=== PATIENT | male | born 1980 | race Caucasian/White ===

== ENCOUNTER 2016-04-27 19:02 | Emergency (ER) | payer SELFPAY ==
[2016-04-27 19:09] VITALS: RESP 24; TEMP 98.7
[2016-04-27] MEDS ORDERED: Sodium Chloride 0.9% 1,000 ML PRIMARY IV ONE (19:10)
[2016-04-27] MEDS ORDERED: NORMAL SALINE 10 ML SYRINGE FLUSH IVP PRN (19:10)
[2016-04-27] MEDS ORDERED: LORazepam 2 MG/1 ML VIAL IVP ONE ×2 (19:10→20:57)
[2016-04-27] MEDS ORDERED: Sodium Chloride 0.9% 1,000 ML, Magnesium Sulfate 2gm (Premix) 50 ML with Multivitamin I... IV ONE ×5 (19:12)
--- NOTE | 2016-04-27 19:21 | EKG ---
[address] [address] Measurements Intervals [place] Rate: 95 P: 29 ME: 124 QRS: 66 QRSD: 101 T: 56 QT: 361 QTc: 413 Interpretive Statements SINUS RHYTHM INCOMPLETE RIGHT BUNDLE BRANCH BLOCK [90+ ms QRS DURATION, TERMINAL R IN V1/V2, 40+ ms S IN I/aVL/V4/V5/V6] No previous ECG available for comparison Electronically Signed On 04-29-16 08:09:19 [facility] by Blayne Matias MD [email or web address]
[2016-04-27 19:36] LABS: BASOPHILS # (AUTO) 0.06 10*3/UL; BASOPHILS % (AUTO) 0.8 % (0-1); EOSINOPHILS % (AUTO) 1.6 % (0-8); HEMATOCRIT 39.3 % (42.0-52.0); HEMOGLOBIN 14.6 g/dL (14.0-18.0); IMM GRAN % (AUTO) 0.3 % (0-5); IMM GRAN# (AUTO) 0.02 10*3/UL; LYMPHOCYTES # (AUTO) 1.53 10*3/uL; LYMPHOCYTES % (AUTO) 21.6 % (10-50); MEAN CORPUSCULAR HEMOGLOBIN 31.3 PG (27-31); MEAN CORPUSCULAR HGB CONC 37.2 g/dL (33-37); MEAN PLATELET VOLUME 10.2 FL (7.4-12.2); MONOCYTES # (AUTO) 0.69 10*3/UL (0.3-0.8); MONOCYTES % (AUTO) 9.7 % (5-15); NEUTROPHILS # (AUTO) 4.67 10*3/UL; RED BLOOD COUNT 4.66 10^6/uL (4.70-6.10); WHITE BLOOD COUNT 7.08 10^3/uL (4.8-10.8)
[2016-04-27 19:40] LABS: PLATELET MORPHOLOGY COMMENT NORMAL MORPHOLOGY (NORM)
[2016-04-27 19:53] LABS: ASPARTATE AMINO TRANSFERASE 174 IU/L (21-57); BILIRUBIN,TOTAL 2.1 mg/dL (0.3-1.2); BLOOD UREA NITROGEN 13 mg/dL (7-22); BUN/CREATININE RATIO 14.44 (6-20); CALCIUM 9.9 mg/dL (8.7-10.7); CHLORIDE 104 meq/L (98-112); CREATININE 0.9 mg/dL (0.70-1.50); EST GLOMERULAR FILTRATION > 60 (>60 ml/min/1.73m(2)); GLUCOSE 145 mg/dL (78-110); MAGNESIUM 1.8 mg/dL (1.6-2.4); POTASSIUM 3.8 meq/L (3.8-5.2); SODIUM 139 meq/L (135-145); TOTAL PROTEIN 8.3 g/dL (6.1-8.0)
[2016-04-27 19:58] LABS: SERUM ALCOHOL < 10 mg/dL (0-10)
[2016-04-27 21:11] LABS: HIV ANTIBODY NEGATIVE (N); HIV-1 P24 ANTIGEN NEGATIVE (N)
[2016-04-27 21:27] LABS: BILIRUBIN,URINE NEGATIVE (NEG); CLARITY,URINE CLEAR (CLEAR); GLUCOSE, URINE (UA) NEGATIVE (NEG); LEUKOCYTE ESTERASE ,URINE NEGATIVE (NEG); NITRATE,URINE NEGATIVE (NEG); OCCULT BLOOD,URINE NEGATIVE (NEG); PH,URINE 7.5 (5.0-8.5); PROTEIN,URINE NEGATIVE (NEG); UROBILINOGEN,URINE 0.2 EU/dL (0.2)
[2016-04-27 21:36] LABS: URINE SAMPLE TYPE CLEAN CATCH URINE; URINE SPECIFIC GRAVITY - MAN 1.015
[2016-04-27 21:38] LABS: FREE T4 (FREE THYROXINE) 1.32 ng/dL (0.93-1.71)
[2016-04-27 21:40] LABS: CANNABINOID SCREEN,URINE POSITIVE (NEG); COCAINE SCREEN NEGATIVE (NEG); METHAMPHETAMINES SCREEN,URINE POSITIVE (NEG)
[2016-04-27] MEDS ORDERED: LORazepam 1 MG TABLET PO SCH (22:00)
--- NOTE | 2016-04-27 22:16 | PDOC ---
General Adult HPI - General Chief Complaint: Drug / Alcohol Use &/or Abuse Stated Complaint: Detoxing Date Seen by Provider: 04/27/16 Time Seen by Provider: 19:00 Source: POSITIVE: Patient, Police Exam Limitations: POSITIVE: No limitations Nurse's Notes Reviewed & Considered: Yes - History of Present Illness Initial Comment: The patient is a 36-year-old male. Patient is brought to the emergency room under police custody; he was arrested this morning. He states he has a history long-standing of prescription opiate abuse and also IV heroin abuse. He states he last injected heroin intravenously a day or so ago. He states he has a 3 year history of opiate abuse and a six-month history of IV heroin abuse. He presents to the emergency room complaining of opiate withdrawal. He states that he is anxious and tremulous and not able to sleep. No fevers or chills. Some myalgia. He states he thinks he might have some blood in his stool. No vomiting. He states he has been told in the past that he has elevated liver functions. Have you received a tetanus shot in the past 10 years?: Unknown Body Location Affected: REPORTS: Other (As above) Timing: REPORTS: Gradual, Getting Worse Duration: <24 hours (Since this morning; onset shortly after being arrested) Severity: Moderate Quality: REPORTS: Other (Patient denies any pain. Complains of not being able to relax, anxiety," opiate withdrawal".) Context: REPORTS: Other (Deprived of opiates since yesterday) Modifying Factors: improves with: Nothing Similar Symptoms Previously: Yes Recent Care Received: REPORTS: Denies Any Prior Injuries Related to Current Complaint?: No - Patient Home Medications Home Medications: Home Medications Diazepam [Valium] 2 mg PO DAILY 04/27/16 - Patient Allergies Allergies/Adverse Reactions: Allergies Allergy/AdvReac Type Severity Reaction Status Date / Time No Known Allergies Allergy Unverified 04/27/16 19:09 Past Medical History - heen HEENT History: Denies History Cardiovascular History: Denies History Respiratory History: Denies History Gastrointestinal History: Other (please comment) Additional Gastrointestinal History: BLEEDING IN THE STOMACH Genitourinary History: Denies History Endocrine History: Denies History Musculoskeletal History: Denies History Neurological History: Denies History Blood Disorders: Denies History Psychiatric History: Denies History Male Reproductive History: Denies History Cancer History: Denies History In Past Year Been Physically Harmed or Verbally Threatened: No History of MDRO: No Tobacco Use: Former Smoker Alcohol Use: None Substance Use Type: Heroin Previous Surgical History: No Significant Family History: No pertinent family hx Past Medical History Reviewed: Reviewed - No Changes ROS - Limitations ROS Limitations: No Limitations Constitution: REPORTS: Denies Symptoms Cardiovascular: REPORTS: Heart Racing Respiratory: REPORTS: Denies Resp Symptoms Neurological: REPORTS: Denies Neuro Symptoms Gastrointestinal: REPORTS: Bloody Stools Endocrine: REPORTS: Denies Symptoms Musculoskeletal: REPORTS: Denies MS Symptoms Genitourinary: REPORTS: Denies Symptoms Eyes: REPORTS: Denies Symptoms ENT: REPORTS: Denies Symptoms Skin: REPORTS: Denies Skin Symptoms Lympathic: REPORTS: Denies Lympathic Symptoms Immunologic: POSITIVE: Denies Symptoms Psychiatric: POSITIVE: Anxiety General Adult Exam - General Appearance General Appearance: POSITIVE: Alert, Cooperative, No Evidence of Trauma, Anxious , Moderate Distress - HEENT HEENT: POSITIVE: Head Inspection Nml, Eyes Inspection Nml, Ears Inspection Nml, Nose Inspection Nml, Oral/Dental Inspect. Nml, Pharynx Inspect. Nml, PERRL, EOMI - Pupils Pupil Size: 4 mm: Bilateral (PERRLA) - Neck Neck: POSITIVE: Normal Inspection, Thyroid Normal - Respiratory Respiratory: POSITIVE: No Respiratory Distress, Breath Sounds Normal, Chest Non- Tender - Cardiovascular Cardiovascular: POSITIVE: Regular Rate & Rhythm, No Murmur, No Gallop, PMI Normal Peripheral Pulses: Radial (R): 2+, Radial (L): 2+ - Abdomen Abdomen: Soft: (All Quadrants), Normal Bowel Sounds: (All Quadrants), Denies Tenderness: (All Quadrants), No Splenomegaly: (All Quadrants), No Hepatomegaly: (All Quadrants), No Guarding: (All Quadrants), No Rebound: (All Quadrants), No Palpable Pulse: (All Quadrants), No Palpabale Mass: (All Quadrants), No Distention: (All Quadrants), No Rigidity: (All Quadrants) - Rectal Rectal: POSITIVE: Non Tender, Normal Rectal Tone, Heme Negative Stool - Back Back: POSITIVE: Normal Inspection - Skin Skin: POSITIVE: Normal Color, Warm, Dry, No Rash - Extremities Extremity: Non-Tender: (All Extremities), Normal ROM: (All Extremities), Normal Inspection: (All Extremities) Additional Extremities Details: Track rojas volar surface of both arms - Neurological / Psychological Neurological: POSITIVE: Oriented X3, employee relations director Normal As Tested, Motor Normal, Sensation Normal, 5, 6 General Adult Progress - Results Reviewed by me Lab Results Reviewed: Yes Lab Results:: Laboratory Results 04/27/16 04/27/16 04/27/16 Range/Units 19:32 20:48 21:00 WBC 7.08 (4.8-10.8) 10^3/uL RBC 4.66 L (4.70-6.10) 10^6/uL Hgb 14.6 (14.0-18.0) g/dL Hct 39.3 L (42.0-52.0) % MCV 84.3 (80-90) FL MCH 31.3 H (27-31) PG MCHC 37.2 H (33-37) g/dL RDW Std Deviation 42.2 (39-50) fL RDW Coeff of Matheus 14.0 (11.5-14.5) % Plt Count 241 (140-350) 10*3/uL MPV 10.2 (7.4-12.2) FL Immature Gran % (Auto) 0.3 (0-5) % Neut % (Auto) 66.0 (50-80) % Lymph % (Auto) 21.6 (10-50) % [place] % (Auto) 9.7 (5-15) % Eos % (Auto) 1.6 (0-8) % Baso % (Auto) 0.8 (0-1) % Immature Gran # (Auto) 0.02 10*3/UL Neut # (Auto) 4.67 10*3/UL Lymph # (Auto) 1.53 10*3/uL [place] # (Auto) 0.69 (0.3-0.8) 10*3/UL Eos # (Auto) 0.11 10*3/UL Baso # (Auto) 0.06 10*3/UL WBC Morphology Comment Normal morphology (NORM) Plt Morphology Comment Normal morphology (NORM) RBC Morph Comment Normal morphology (NORM) Sodium 139 (135-145) meq/L Potassium 3.8 (3.8-5.2) meq/L Chloride 104 (98-112) meq/L Carbon Dioxide 22 L (23-33) meq/L Anion Gap 13 (5-20) BUN 13 (7-22) mg/dL Creatinine 0.9 (0.70-1.50) mg/dL Estimated GFR > 60 (>60 ml/min/1.73m(2)) BUN/Creatinine Ratio 14.44 (6-20) Glucose 145 H (78-110) mg/dL Calculated Osmolality 290.0 (267-292) mOsm/kg Calcium 9.9 (8.7-10.7) mg/dL Magnesium 1.8 (1.6-2.4) mg/dL Total Bilirubin 2.1 H (0.3-1.2) mg/dL AST 174 H (21-57) IU/L ALT 246 H (21-72) IU/L Alkaline Phosphatase 142 H (38-126) IU/L Total Protein 8.3 H (6.1-8.0) g/dL Albumin 4.5 (3.5-4.8) g/dL Globulin 3.8 (2.50-4.10) g/dL Albumin/Globulin Ratio 1.10 L (1.3-2.0) mg/g TSH 0.074 L (0.2700-4.2000) uIU/mL Free T4 1.32 (0.93-1.71) ng/dL Ur Collection Type Clean catch urine Urine Color Yellow Urine Clarity Clear (CLEAR) Urine pH 7.5 (5.0-8.5) Ur Specific [place] 1.015 (1.005-1.030) U Specif Grav (Refrac) 1.015 Urine Protein Negative (NEG) mg/dl Urine Glucose (UA) Negative (NEG) mg/dL Urine Ketones Trace (NEG) Urine Occult Blood Negative (NEG) Urine Nitrate Negative (NEG) Urine Bilirubin Negative (NEG) Urine Urobilinogen 0.2 (0.2) EU/dL Ur Leukocyte Esterase Negative (NEG) Ur Culture Indicated? Culture not set Salicylates < 1.0 (0-20) mg/dl Urine Opiates Screen Positive H (NEG) Ur Buprenorphine Negative (NEG) Ur Oxycodone Screen Negative (NEG) Urine Methadone Screen Negative (NEG) Ur Propoxyphene Screen Negative (NEG) Acetaminophen < 10.0 (0-30) ug/mL Barbiturate Screen Negative (NEG) U Tricyclic Antidepress Negative (NEG) Phencyclidine Screen Negative (NEG) Amphetamines Screen Positive H (NEG) U Methamphetamines Scrn Positive H (NEG) Benzodiazepines Screen Positive H (NEG) Cocaine Screen Negative (NEG) U Marijuana (THC) Screen Positive H (NEG) Serum Alcohol < 10 (0-10) mg/dL HIV 1&2 Antibody Rapid Negative (N) HIV P24 Antigen Negative (N) EKG Interpreted/Reviewed By Me:: Yes (right bundle-branch block) EKG Interpretation:: POSITIVE: Normal Sinus Rhythm, Normal Rate, Normal Intervals, Normal Mcmillan, Normal ST/T. NEGATIVE: Normal QRS (Incomplete right bundle-branch block) - Patient's Progress Pain Medication Addressed: POSITIVE: Yes (Patient given a total of 4 mg of Ativan in the emergency room IV and a banana bag of a liter of normal saline with 2 g magnesium sulfate, 100 mg of thiamine and a milligram of folate.) School/Work Release Addressed: POSITIVE: Yes (Medically cleared to return to the senior living) Re-Examine Time: 21:50 Re-Examine Comment: Patient given a total 4 mg of Ativan IV in the emergency room as well as a banana bag. Liver functions are elevated and hepatitis panel is pending. Patient is medically stable and is discharged back to the senior living in the custody of police officers. Medical personnel at the senior living advised of hepatitis panel, which should be back Friday or Friday and, if positive, further evaluation and treatment of possible hepatitis can be undertaken at that time. Status: POSITIVE: Improved, Re-Examined Antibiotics Given: No - Consult Counseled: POSITIVE: Patient, RE: Lab Results, RE: DX, RE: Need for F/U Patient Care Time - Estimated PCT Patient Care Time (In Minutes): 60 Vital Signs - Recent Vital Signs Vital Signs: Vital Signs (Last 8 hours) Temp Pulse Resp BP Pulse Ox 04/27/16 19:05 98.7 F 104 H 24 178/102 95 04/27/16 19:02 98.7 F 104 H 24 178/102 95 - VS Reviewed Vital Signs Reviewed: Yes Discharge Clinical Impression: Narcotic abuse, Narcotic withdrawal, Elevated liver enzymes, Polysubstance abuse Discharge Disposition: Discharged to Custody of Law Enforcement Condition: Good Patient Instructions Given at Discharge: Narcotic Abuse (ED), Opioid Withdrawal (ED) Additional Instructions: Avoid the use of any illegal drugs or prescription opiates. Your liver functions are somewhat elevated; since you are an IV drug abuser you are at risk for hepatitis. I have drawn a hepatitis panel and the results should be back to 0 Friday. I have asked the medical staff at the senior living to receive the results of this test and, if positive, make appropriate referral. Your HIV test is negative. Ativan one every 6 hours as necessary for opiate withdrawal. Return here anytime if condition worsens. Follow Up With: NONE,NONE [Primary Care Provider] - (Instructions as above. Return as necessary.) Date Decision to Transfer to Another Facility: 04/27/16 Time Decision to Transfer to Another Facility: 21:50
[2016-04-30 10:14] LABS: HEP B CORE IGM ANTIBODY Negative (Negative); HEPATITIS B SURFACE AG Negative (Negative)
[2016-04-30 13:50] LABS: HEPATITIS C ANTIBODY SCREEN Reactive (Negative)
== END 2016-04-27 22:03 ==
LOC: ER 19:02
DX: F11.23 Opioid dependence with withdrawal (principal); F11.10 Opioid abuse, uncomplicated; F19.10 Other psychoactive substance abuse, uncomplicated; R79.89 Other specified abnormal findings of blood chemistry
CPT/HCPCS: 80053; 80305; 80320; 80329; 81003; 83735; 84439; 84443; 85025; 86703; 86705; 86709; 86803; 87340; 87522; 90791; 93005; 93010; 96361; 96365; 96366; 96375; 96376; 99283; J2060; J3411; J3475; J7030

== ENCOUNTER 2016-04-28 20:34 | Observation (INO) | payer OTHER ==
[2016-04-28] MEDS ORDERED: NORMAL SALINE 10 ML SYRINGE FLUSH IVP PRN ×2 (20:36→22:52)
[2016-04-28] MEDS ORDERED: Sodium Chloride 0.9% 1,000 ML PRIMARY IV ONE (20:36)
[2016-04-28] MEDS ORDERED: LORazepam 2 MG/1 ML VIAL IVP ONE (20:36)
[2016-04-28] MEDS ORDERED: Prochlorperazine Edisylate Inj 10mg/2ml vial IVP ONE (20:37)
[2016-04-28 20:46] LABS: BASOPHILS # (AUTO) 0.03 10*3/UL; BASOPHILS % (AUTO) 0.2 % (0-1); EOSINOPHILS % (AUTO) 0.1 % (0-8); HEMATOCRIT 42.9 % (42.0-52.0); IMM GRAN % (AUTO) 0.2 % (0-5); IMM GRAN# (AUTO) 0.02 10*3/UL; LYMPHOCYTES # (AUTO) 2.72 10*3/uL; LYMPHOCYTES % (AUTO) 21.4 % (10-50); MEAN CORPUSCULAR HEMOGLOBIN 31.3 PG (27-31); MEAN CORPUSCULAR HGB CONC 37.3 g/dL (33-37); MEAN PLATELET VOLUME 10.3 FL (7.4-12.2); MONOCYTES # (AUTO) 1.38 10*3/UL (0.3-0.8); MONOCYTES % (AUTO) 10.9 % (5-15); NEUTROPHILS # (AUTO) 8.53 10*3/UL; NEUTROPHILS % (AUTO) 67.2 % (50-80); PLATELET MORPHOLOGY COMMENT NORMAL MORPHOLOGY (NORM); RDW COEFFICIENT OF VARIATION 14.4 % (11.5-14.5); RED BLOOD COUNT 5.12 10^6/uL (4.70-6.10); WHITE BLOOD COUNT 12.69 10^3/uL (4.8-10.8)
[2016-04-28 20:54] LABS: ASPARTATE AMINO TRANSFERASE 525 IU/L (21-57); BILIRUBIN,TOTAL 2.6 mg/dL (0.3-1.2); BLOOD UREA NITROGEN 14 mg/dL (7-22); BUN/CREATININE RATIO 15.55 (6-20); CALCIUM 10.1 mg/dL (8.7-10.7); CHLORIDE 104 meq/L (98-112); CREATININE 0.9 mg/dL (0.70-1.50); EST GLOMERULAR FILTRATION > 60 (>60 ml/min/1.73m(2)); GLUCOSE 133 mg/dL (78-110); POTASSIUM 4.1 meq/L (3.8-5.2); SODIUM 141 meq/L (135-145); TOTAL PROTEIN 8.7 g/dL (6.1-8.0)
[2016-04-28 20:57] LABS: AMYLASE < 30 U/L (30-110); PROTHROMBIN TIME 12.2 secs (9.7-11.4)
--- NOTE | 2016-04-28 20:57 | EKG ---
[address] [address] Measurements Intervals [place] Rate: 59 P: 58 CT: 118 QRS: 82 QRSD: 103 T: 77 QT: 445 QTc: 444 Interpretive Statements SINUS BRADYCARDIA WITH SINUS ARRHYTHMIA WITH SHORT CT INTERVAL INTERPRETATION BASED ON A DEFAULT AGE OF 40 YEARS Compared to ECG 04/27/2016 19:21:[address] interval now present Sinus rhythm no longer present Incomplete right bundle-branch block no longer present Electronically Signed On 04-29-16 08:11:41 [facility] by Blayne Matias MD [email or web address]
[2016-04-28 21:06] LABS: CREATINE KINASE MB 0.71 NG/DL (0.00-5.00); TROPONIN I < 0.012 ng/mL (< 0.040)
--- NOTE | 2016-04-28 22:28 | DI ---
HISTORY: Generalized abdominal pain with vomiting and elevated LFTs. COMPARISON: None. TECHNIQUE: Helical CT scanning was performed from the lung bases, through the abdomen and pelvis, to the level of lesser trochanters following the administration of IV contrast material. MPR. 370 images . FINDINGS: LUNG BASES/LOWER HEART: The visualized portions of the heart and lung bases are without focal consol idation, pleural effusion or pneumothorax. ABDOMEN/PELVIS: LIVER: Overall homogeneous appearance, noting a sub centimeter hypotenuse lesion in the right anterio r lobe of liver which is too small to adequately characterize. No aggressive features detected. GALLBLADDER: Distended with bile. No calcified gallstones identified. PANCREAS: No adjacent inflammatory change. ADRENAL GLANDS: Maintain their normal shapes and sizes. SPLEEN: Enhances homogeneously. KIDNEYS: Normal location. No hydronephrosis. Mild cortical scarring of the posterior right kidney. GREAT VESSELS: Enhance unremarkably. FREE INTRAPERITONEAL FLUID: No significant volume. VARIABLY DISTENDED BOWEL LOOPS: Few, mildly prominent loops of jejunum without adjacent stranding or evidence of high-grade obstruction. Large bowel is distended with fluid and small bowel with mixed at tenuation material. APPENDIX: Incompletely visualized. No inflammatory change detected in the right lower quadrant, given limitations secondary to limited patient intraperitoneal fat. URINARY BLADDER: Distended with urine, noting mild thickening of the bladder wall. OSSEOUS STRUCTURES: No acute osseous abnormality noted. IMPRESSION: 1. No evidence of high-grade bowel obstruction. Jejunal loops of small bowel are mildly prominent, h owever no adjacent inflammatory changes are noted. The appendix is incompletely evaluated and no rig ht lower quadrant fat stranding is noted, given limitations secondary to lack of intraperitoneal fat. If continued clinical concern, consider CT following oral contrast administration. 2. No obstructive uropathy or evidence of pancreatitis.
[2016-04-28] MEDS ORDERED: ONDANSETRON 4 MG/2 ML VIAL IVP PRN (22:52)
--- NOTE | 2016-04-28 23:06 | PDOC ---
History and Physical - History of Present Illness Date and Time of Service: 04/28/2016 11 PM Chief Complaint: Vomiting, agitation since yesterday History of Present Illness: This is a 36 years old male with no significant past medical history except long -standing history of drug abuse including IV heroin apparently he was arrested yesterday morning and was brought yesterday to the ER because of withdrawal symptoms. Apparently he was anxious and tremulous and was unable to sleep and had some myalgia at that time there was no vomiting. In the ER he was given some fluids and given IV Ativan and was prescribed Ativan as needed to get at the group home and was sent back to the group home. Apparently he continued to vomit and complained from chest pain with radiation to the arm today and because of that was brought to the ER again. This time he was given Ativan and Compazine. Was found to be dehydrated and his LFTs were higher than yesterday and hence the admission. Patient sleepy would wake up at times and responded to some of the questions and then go back to sleep. The patient did say that he use drugs including IV heroin he told me for years, he did admit other drug usage after asking him about the positive urine tox for meth and benzo. He Denied cocaine. Difficult to get history from because of his sleepiness. Past Medical History Medical History: 1. Drug abuse unclear duration. 2. Elevated LFTs on a blood test done yesterday, couldn't tell me whether he had hepatitis before or not Surgical History: There is a scar of previous operation on the left forearm Pertinent Family History: Did not answer the question Past Social History: Patient is from [facility], he smokes, he doesn't drink according to him, uses IV drugs including heroin and apparently marijuana and meth Tobacco Use: Current Every Day Smoker Substance Use Type: Heroin, Marijuana, Opiate Pain Medication, Methamphetamines Alcohol Use: None Medication / Allergies Home Medications: Home Medications Medication Instructions Recorded Confirmed Type Diazepam [Valium] 2 mg PO DAILY 04/27/16 04/28/16 History LORazepam Tab [Ativan Tab] 1 mg PO Q6H PRN 04/28/16 04/28/16 History Allergies/Adverse Reactions: Allergies Allergy/AdvReac Type Severity Reaction Status Date / Time No Known Allergies Allergy Verified 04/28/16 20:38 Review of Systems - Review of Systems ROS Unobtainable: Due to Mental Status Exam - General Additional General Exam Details: Sleepy because of the effect of the medication that he got earlier - Head Head Exam: POSITIVE: Normal Inspection - Eye Eye Exam: POSITIVE: Normal Appearance - ENT ENT Exam: POSITIVE: Normal Exam - Neck Neck Exam: POSITIVE: Normal Inspection - Respiratory Respiratory Exam: POSITIVE: Clear to Auscultation - Bilaterally - Cardiovascular Cardiovascular Exam: POSITIVE: RRR - GI/Abdominal GI/Abdominal Exam: POSITIVE: Normal Bowel Sounds, Non Tender, Non Distended, Soft - Rectal Rectal Exam: POSITIVE: Deferred - External Exam: POSITIVE: Deferred - Extremities Additional Extremities Exam Details: A scar of previous operation on the left forearm, moves all limbs, not cooperative but moving all limbs - Back Back Exam: POSITIVE: Normal Inspection - Neurological Additional Neurological Exam Details: Sleepy, moving all limbs. Would answer some of the questions and then go back to sleep - Integumentary Integumentary Exam: POSITIVE: Dry Results - Labs CBC and BMP: 04/28/16 20:43 04/28/16 20:43 - EKG Data -: EKG Interpreted by Me Rate: Normal EKG Shows Normal: Sinus Rhythm - EKG Data Additional EKG Details: Incomplete right bundle branch block - Imaging Status: Report Reviewed by Me (CT abdomen, no evidence of high-grade bowel obstruction, jejunal loops of small bowel are mildly prominent however no adjacent document 3 changes are noted.) Assessment and Plan - Patient Problems (1) Polysubstance abuse Current Visit: No Status: Acute Comment: Continue fluid hydration, antiemetics and Ativan as needed, will treat symptomatically may consider clonidine after hydration (2) Elevated liver enzymes Current Visit: No Status: Acute Comment: Hepatitis screen was sent will repeat LFT tomorrow
[2016-04-28] MEDS: NORMAL SALINE 10 ML SYRINGE FLUSH IVP PRN (23:23)
[2016-04-28] MEDS: LORazepam 2 MG/1 ML VIAL IVP PRN (23:23)
[2016-04-28] MEDS: Sodium Chloride 0.9% 1,000 ML PRIMARY IV SCH (23:24)
--- NOTE | 2016-04-28 23:42 | PDOC ---
General Adult HPI - General Chief Complaint: Chest Pain Stated Complaint: chest pain Date Seen by Provider: 04/28/16 Time Seen by Provider: 20:30 Source: POSITIVE: Patient, Police Exam Limitations: POSITIVE: Clinical condition Nurse's Notes Reviewed & Considered: Yes - History of Present Illness Initial Comment: The patient is a 36-year-old male who is brought back to the emergency department with complaints of withdrawal. He reports that he previously used large amounts of heroin. In reviewing his emergency room visit from last night he apparently has a history of prescription opiate abuse for several years with heavy heroin use for the past 6 months. He was arrested sometime yesterday and was subsequently evaluated here in the emergency department for medical clearance. He was quite agitated when he was seen in the emergency room last night and received several doses of Ativan and Haldol. He was subsequently allowed to go to assisted. He was given Ativan as needed for withdrawal symptoms. He did test positive for opiates, amphetamines, methamphetamines and marijuana on his tox screen yesterday. His blood work revealed elevated liver enzymes and an acute hepatitis panel had been sent off yesterday. Today he has remained agitated and according to him he has been vomiting. He also is complaining of chest pain which is worsened after vomiting. He also reports having blood in his stool. Have you received a tetanus shot in the past 10 years?: Unknown - Patient Home Medications Home Medications: Home Medications Diazepam [Valium] 2 mg PO DAILY 04/27/16 LORazepam Tab [Ativan Tab] 1 mg PO Q6H PRN 04/28/16 - Patient Allergies Allergies/Adverse Reactions: Allergies Allergy/AdvReac Type Severity Reaction Status Date / Time No Known Allergies Allergy Verified 04/28/16 20:38 Past Medical History - heen HEENT History: Denies History Cardiovascular History: Denies History Respiratory History: Denies History Gastrointestinal History: GI Bleed, Other (please comment) Additional Gastrointestinal History: BLEEDING IN THE STOMACH Genitourinary History: Denies History Endocrine History: Denies History Musculoskeletal History: Denies History Prosthesis or Implant: No Neurological History: Denies History Blood Disorders: Denies History Psychiatric History: Substance Abuse Cancer History: Denies History In Past Year Been Physically Harmed or Verbally Threatened: No History of MDRO: No Tobacco Use: Current Every Day Smoker Alcohol Use: None How much alcohol do you normally drink a day?: pt denies Substance Use Type: Heroin, Marijuana, Opiate Pain Medication, Methamphetamines Previous Surgical History: No Significant Family History: No pertinent family hx Past Medical History Reviewed: Reviewed - No Changes ROS - Limitations ROS Limitations: Uncooperative, Other (please comment) (Patient is agitated and at times uncooperative) Constitution: DENIES: Chills, Fever Cardiovascular: REPORTS: Chest Pain, Heart Racing, Heart Palpitations. DENIES: Edema Respiratory: REPORTS: Denies Resp Symptoms. DENIES: Shortness Of Breath Neurological: DENIES: Headache, Numbness, Weakness Gastrointestinal: REPORTS: Abdominal Pain, Nausea, Vomitting, Diarrhea, Bloody Stools General Adult Exam - General Appearance General Appearance: POSITIVE: Anxious - HEENT HEENT: POSITIVE: Head Inspection Nml, Eyes Inspection Nml, Ears Inspection Nml, Dry Mucous Membranes - Neck Neck: POSITIVE: Normal Inspection. NEGATIVE: Lymphadenopathy - Respiratory Respiratory: POSITIVE: No Respiratory Distress, Breath Sounds Normal - Cardiovascular Cardiovascular: POSITIVE: Regular Rate & Rhythm, No Murmur Peripheral Pulses: Dorsalis-pedis (R): 2+, Dorsalis-pedis (L): 2+ - Abdomen Abdomen: Soft: (All Quadrants), Normal Bowel Sounds: (All Quadrants), No Guarding: (All Quadrants), No Rebound: (All Quadrants), No [place] Mass: (All Quadrants), No Distention: (All Quadrants) - Skin Skin: POSITIVE: Normal Color, Other (Multiple bruises and lesions on his arms consistent with IV drug abuse) - Extremities Extremity: Normal ROM: (All Extremities), Normal Inspection: (All Extremities) - Neurological / Psychological Neurological: POSITIVE: Oriented X3, Motor Normal, Sensation Normal General Adult Progress - Results Reviewed by me Xrays/CTs/US Reviewed by me: Yes Discussed with Radiologist: Yes Radiology Findings: Chest x-ray is unremarkable. CT scan of the abdomen and pelvis reveals no evidence of obstruction, no CT evidence of appendicitis, unremarkable liver and gallbladder, he does have some mild inflammatory changes in the bowel being nonspecific per radiologist. Lab Results Reviewed: Yes Lab Results:: Laboratory Results 04/28/16 Range/Units 20:43 WBC 12.69 H (4.8-10.8) 10^3/uL RBC 5.12 (4.70-6.10) 10^6/uL Hgb 16.0 (14.0-18.0) g/dL Hct 42.9 (42.0-52.0) % MCV 83.8 (80-90) FL MCH 31.3 H (27-31) PG MCHC 37.3 H (33-37) g/dL RDW Std Deviation 43.5 (39-50) fL RDW Coeff of Matheus 14.4 (11.5-14.5) % Plt Count 274 (140-350) 10*3/uL MPV 10.3 (7.4-12.2) FL Immature Gran % (Auto) 0.2 (0-5) % Neut % (Auto) 67.2 (50-80) % Lymph % (Auto) 21.4 (10-50) % [place] % (Auto) 10.9 (5-15) % Eos % (Auto) 0.1 (0-8) % Baso % (Auto) 0.2 (0-1) % Immature Gran # (Auto) 0.02 10*3/UL Neut # (Auto) 8.53 10*3/UL Lymph # (Auto) 2.72 10*3/uL [place] # (Auto) 1.38 H (0.3-0.8) 10*3/UL Eos # (Auto) 0.01 10*3/UL Baso # (Auto) 0.03 10*3/UL WBC Morphology Comment Normal morphology (NORM) Plt Morphology Comment Normal morphology (NORM) RBC Morph Comment Normal morphology (NORM) PT 12.2 H (9.7-11.4) secs INR 1.18 (0.00-5.90) N/A D-Dimer 0.52 (0.00-0.59) mg/L Sodium 141 (135-145) meq/L Potassium 4.1 (3.8-5.2) meq/L Chloride 104 (98-112) meq/L Carbon Dioxide 22 L (23-33) meq/L Anion Gap 15 (5-20) BUN 14 (7-22) mg/dL Creatinine 0.9 (0.70-1.50) mg/dL Estimated GFR > 60 (>60 ml/min/1.73m(2)) BUN/Creatinine Ratio 15.55 (6-20) Glucose 133 H (78-110) mg/dL Calculated Osmolality 294.0 H (267-292) mOsm/kg Calcium 10.1 (8.7-10.7) mg/dL Magnesium 2.0 (1.6-2.4) mg/dL Total Bilirubin 2.6 H (0.3-1.2) mg/dL AST 525 H (21-57) IU/L ALT 652 H (21-72) IU/L Alkaline Phosphatase 138 H (38-126) IU/L CK-MB (CK-2) 0.71 (0.00-5.00) NG/DL Troponin I < 0.012 (< 0.040) ng/mL Total Protein 8.7 H (6.1-8.0) g/dL Albumin 4.8 (3.5-4.8) g/dL Globulin 3.9 (2.50-4.10) g/dL Albumin/Globulin Ratio 1.20 L (1.3-2.0) mg/g Amylase < 30 L (30-110) U/L Lipase 102 (23-300) IU/L EKG Interpreted/Reviewed By Me:: Yes EKG Interpretation:: POSITIVE: Normal Sinus Rhythm, Normal Rate, Normal Intervals, Normal QRS, Normal ST/T - Patient's Progress MDM / ED Course: The patient was agitated and dry heaving on arrival. He received Ativan 2 mg IV and Compazine 5 mg IV. He continued to complain of abdominal pain. Blood work revealed liver enzymes which had increased since yesterday as well as an elevated white count at 12,000. Because of his complaints of abdominal pain and these laboratory findings a CT of the abdomen and pelvis was ordered. The patient appears to be having withdrawal likely primarily from opiates although he did test positive for amphetamines as well. Clinically he does appear to be dehydrated. The patient was requesting narcotic medication to help him "wean off" of the heroin. I told him that I did not feel comfortable giving him any narcotics. The patient does however appear to be dehydrated and his liver enzymes are rising. An acute hepatitis panel has been sent. The patient is at risk for viral hepatitis. Decision was made to admit the patient for further hydration and treatment of his withdrawal symptoms. Dr. Castillo has agreed to admit the patient. - Consult Counseled: POSITIVE: Patient, RE: Lab Results, RE: Radiology Results, RE: DX, RE : Need for F/U Patient Care Time - Estimated PCT Patient Care Time (In Minutes): 35 Vital Signs - Recent Vital Signs Vital Signs: Vital Signs (Last 8 hours) Temp Pulse Pulse Resp BP Pulse Ox 04/28/16 20:36 59 L 04/28/16 20:35 97.6 F 56 L 22 113/73 96 - VS Reviewed Vital Signs Reviewed: Yes Discharge Clinical Impression: Narcotic withdrawal, Polysubstance abuse, Elevated liver enzymes Discharge Disposition: Admit to Observation Condition: Stable
[2016-04-29] MEDS: NORMAL SALINE 10 ML SYRINGE FLUSH IVP PRN (02:06)
[2016-04-29] MEDS: LORazepam 2 MG/1 ML VIAL IVP PRN ×3 (02:06→09:00)
[2016-04-29] MEDS: Sodium Chloride 0.9% 1,000 ML PRIMARY IV SCH ×3 (06:20→18:38)
[2016-04-29 06:30] LABS: ASPARTATE AMINO TRANSFERASE 486 IU/L (21-57); BILIRUBIN,TOTAL 2.4 mg/dL (0.3-1.2); BLOOD UREA NITROGEN 13 mg/dL (7-22); BUN/CREATININE RATIO 16.25 (6-20); CALCIUM 8.9 mg/dL (8.7-10.7); CHLORIDE 106 meq/L (98-112); CREATININE 0.8 mg/dL (0.70-1.50); EST GLOMERULAR FILTRATION > 60 (>60 ml/min/1.73m(2)); GLUCOSE 149 mg/dL (78-110); POTASSIUM 3.6 meq/L (3.8-5.2); SODIUM 138 meq/L (135-145); TOTAL PROTEIN 7.7 g/dL (6.1-8.0)
[2016-04-29 06:35] LABS: BASOPHILS # (AUTO) 0.05 10*3/UL; BASOPHILS % (AUTO) 0.5 % (0-1); EOSINOPHILS % (AUTO) 0.1 % (0-8); HEMOGLOBIN 15.8 g/dL (14.0-18.0); IMM GRAN % (AUTO) 0.2 % (0-5); IMM GRAN# (AUTO) 0.02 10*3/UL; LYMPHOCYTES # (AUTO) 2.32 10*3/uL; LYMPHOCYTES % (AUTO) 21.5 % (10-50); MEAN CORPUSCULAR HGB CONC 36.7 g/dL (33-37); MEAN PLATELET VOLUME 10.7 FL (7.4-12.2); MONOCYTES # (AUTO) 1.26 10*3/UL (0.3-0.8); MONOCYTES % (AUTO) 11.7 % (5-15); NEUTROPHILS # (AUTO) 7.12 10*3/UL; RDW COEFFICIENT OF VARIATION 14.5 % (11.5-14.5); RED BLOOD COUNT 5.09 10^6/uL (4.70-6.10); WHITE BLOOD COUNT 10.78 10^3/uL (4.8-10.8)
[2016-04-29 06:39] LABS: PLATELET MORPHOLOGY COMMENT NORMAL MORPHOLOGY (NORM)
--- NOTE | 2016-04-29 09:02 | DI ---
AP CHEST X-RAY, 04/28/2016 8:36 PM : Clinical History: Chest pain Previous Exam: None at this facility. There is no acute soft tissue or bony abnormality. Heart size is normal. Lungs are clear. Mediastinal structures are normal. There are no pulmonary nodules. Reading: Normal chest x-ray.
[2016-04-29] MEDS ORDERED: POTASSIUM CHLORIDE 20 MEQ TAB PO ONE (09:58)
[2016-04-29] MEDS ORDERED: Diphenoxylate/Atropine 2.5/0.025 mg Tab PO PRN (10:09)
[2016-04-29] MEDS ORDERED: LORazepam 2 MG/1 ML VIAL IVP PRN (10:09)
[2016-04-29] MEDS ORDERED: QUEtiapine Tab 25 MG TAB PO ONE (10:46)
--- NOTE | 2016-04-29 12:44 | PDOC(PROG) ---
Date and Time of Service: 04/29/2016, 1235 Interval History: Wants to be on Dilaudid. States it is the only thing that helps him and his withdrawal states. He is continuing to have diarrhea and is agitated, but overall is better than he was when he was first admitted. Objective : Data - Labs CBC and BMP: 04/29/16 06:04 04/29/16 06:04 Labs - Last 24 Hours: Laboratory Results 04/29/16 Range/Units 06:04 WBC 10.78 (4.8-10.8) 10^3/uL RBC 5.09 (4.70-6.10) 10^6/uL Hgb 15.8 (14.0-18.0) g/dL Hct 43.0 (42.0-52.0) % MCV 84.5 (80-90) FL MCH 31.0 (27-31) PG MCHC 36.7 (33-37) g/dL RDW Std Deviation 43.8 (39-50) fL RDW Coeff of Matheus 14.5 (11.5-14.5) % Plt Count 245 (140-350) 10*3/uL MPV 10.7 (7.4-12.2) FL Immature Gran % (Auto) 0.2 (0-5) % Neut % (Auto) 66.0 (50-80) % Lymph % (Auto) 21.5 (10-50) % [place] % (Auto) 11.7 (5-15) % Eos % (Auto) 0.1 (0-8) % Baso % (Auto) 0.5 (0-1) % Immature Gran # (Auto) 0.02 10*3/UL Neut # (Auto) 7.12 10*3/UL Lymph # (Auto) 2.32 10*3/uL [place] # (Auto) 1.26 H (0.3-0.8) 10*3/UL Eos # (Auto) 0.01 10*3/UL Baso # (Auto) 0.05 10*3/UL WBC Morphology Comment Normal morphology (NORM) Plt Morphology Comment Normal morphology (NORM) RBC Morph Comment Normal morphology (NORM) Sodium 138 (135-145) meq/L Potassium 3.6 L (3.8-5.2) meq/L Chloride 106 (98-112) meq/L Carbon Dioxide 21 L (23-33) meq/L Anion Gap 11 (5-20) BUN 13 (7-22) mg/dL Creatinine 0.8 (0.70-1.50) mg/dL Estimated GFR > 60 (>60 ml/min/1.73m(2)) BUN/Creatinine Ratio 16.25 (6-20) Glucose 149 H (78-110) mg/dL Calculated Osmolality 288.0 (267-292) mOsm/kg Calcium 8.9 (8.7-10.7) mg/dL Total Bilirubin 2.4 H (0.3-1.2) mg/dL AST 486 H (21-57) IU/L ALT 677 H (21-72) IU/L Alkaline Phosphatase 121 (38-126) IU/L Troponin I < 0.012 (< 0.040) ng/mL Total Protein 7.7 (6.1-8.0) g/dL Albumin 4.1 (3.5-4.8) g/dL Globulin 3.6 (2.50-4.10) g/dL Albumin/Globulin Ratio 1.10 L (1.3-2.0) mg/g Objective : Exam - General General Appearance: Disheveled Additional General Exam Details: Hand cuff done right hand and to bed. This is per law enforcement. They are monitoring him as he is in here and is undergoing a custody. Patient appears disheveled, very anxious. Vital Signs - Last Taken Temperature 98 F 04/29/16 11:10 Pulse Rate 56 L 04/29/16 11:10 Respiratory Rate 19 04/29/16 11:10 Blood Pressure 129/81 04/29/16 11:10 Pulse Ox 97 04/29/16 11:10 - Head Head Exam: Normal Inspection, Normocephalic, Atraumatic - Eye Eye Exam: No Scleral Icterus Additional Eye Exam Details: Interestingly, pupils appeared enlarged. - Respiratory Respiratory Exam: Clear to Auscultation - Bilaterally, Breathing Non Labored - Cardiovascular Cardiovascular Exam: RRR, No Murmur, No Clicks, No Gallops, No Rubs, No JVD - GI/Abdominal GI/Abdominal Exam: Normal Bowel Sounds, Non Tender, Non Distended, Soft - Extremities Extremities Exam: No Clubbing Present, No Edema Present, No Cyanosis Present - Neurological Neurological Exam: Alert, No Facial Droop, Speech Intact / Clear, Moves All Extremities Equally - Psychiatric Psychiatric Exam: Agitated Additional Psychiatric Exam Details: Pressured speech. Slurs his words often when he gets to speaking longer. Thoughts are very disconnected. Assessment and Plan - Patient Problems (1) Narcotic withdrawal Current Visit: Yes Status: Acute (2) Polysubstance abuse Current Visit: Yes Status: Acute (3) Agitation Current Visit: Yes Status: Acute - Assessment / Plan Additional Assessment/Plan Details: reduce frequency of ativan and try to taper over the next day or so antidiarrheal for diarrhea clonopin seroquel for severe agitation no narcotics
[2016-04-29 16:27] VITALS: RESP 18; TEMP 98.2
[2016-04-29] MEDS ORDERED: LORazepam 1 MG TABLET ONE (18:19)
--- NOTE | 2016-04-29 18:25 | DCSUMMARY ---
Hospitalization Summary Admit Date: 04/28/16 Discharge Date: 04/29/16 Primary Diagnosis:: opiate and narcotic withdrawal Secondary Diagnosis:: Marked polysubstance abuse Hospital Course: This is a 36-year-old male that admits to heroin abuse, and had a urine drug screen positive for methamphetamines, amphetamines, and marijuana. He was admitted to nursing home recently apparently for possession, and had some withdrawal symptoms at the nursing home was brought back here for evaluation. Upon evaluation he was found to have elevated liver enzymes and an elevated total bilirubin. They do appear better today. He had some nausea and vomiting and diarrhea CONSISTENT with his withdrawal symptoms. His hepatitis panel is pending. ( Viral hepatitis panel), and his HIV panel is negative on the rapid HIV. The patient is been requesting Dilaudid, demanding it actually, and has also been requesting Ativan frequently. He states this afternoon or this evening that his symptoms are much better and he would like to go back to nursing home. I am agreeable to this. I will hold off on clonidine as it does appear the patient has some mild bradycardia. It is asymptomatic. I warned the patient that he will likely continue to have some physical withdrawal symptoms, but that these can be treated symptomatically with antidiarrheal agents. There is really no indication for antianxiety medications in the setting of opiate withdrawal, so I will try to taper that over the next couple days. I will prescribe Seroquel for sleep, agitation, and insomnia issues. I will do a just short-term to help him get through opiate withdrawal, and there are some literature to actually suggest that it does help patient's symptoms and the states. Patient denies any chest pain, shortness of breath, nausea or vomiting, or abdominal pain now. Assessment and Plan: 1. As per discharge assessments noted 2. Disposition: Patient will be discharged back to longterm/nursing home 3. Condition on discharge, stable and improved. Overall long-term prognosis guarded depending on how patient does on any potential rehabilitation attempts. He is at very high risk for relapse and based on the drugs that he uses. 4. Diet: regular diet 5. Activities: Stop doing drugs 6. Follow-Up: 1. Primary care provider when released from longterm. I dispose of the patient's hepatitis panel is pending and he'll need to follow up on that by having his doctor request the labs. 2. 7. Medications at the Time of Discharge: Home Medications Medication Instructions Recorded Confirmed Type Diazepam [Valium] 2 mg PO DAILY 04/27/16 04/28/16 History Quetiapine Fumarate [Seroquel] 50 mg PO QPM PRN #10 tablet 04/29/16 Rx RX: Diphenoxylate/Atropine 1 tab PO Q6H PRN #30 tab 04/29/16 Rx [Lomotil 2.5/0.025 mg] RX: LORazepam Tab [Ativan Tab] 1 mg PO Q12HR #6 tab 04/29/16 Rx 8. Time, care, counseling and coordination of care for this discharge is greater than 30 minutes. Exam - Vitals Vital Signs: Vital Signs Temperature 98.2 F Temperature Source Temporal Artery Scan Pulse Rate [Telemetry] 49 Pulse Rate [Pulse Oximeter] 50 Pulse Rate 55 Respiratory Rate 18 Blood Pressure [Left Arm] 135/92 Pulse Ox 94 Oxygen Delivery Method Room Air Height 6 ft Weight 159 lb 6.4 oz - General General Appearance: POSITIVE: No Acute Distress, Cooperative, Disheveled - Head Head Exam: POSITIVE: Normal Inspection, Normocephalic, Atraumatic - Eye Eye Exam: POSITIVE: No Scleral Icterus - Respiratory Respiratory Exam: POSITIVE: Clear to Auscultation - Bilaterally, Breathing Non Labored - Cardiovascular Cardiovascular Exam: POSITIVE: No Murmur, No Clicks, No Gallops, No Rubs, Bradycardia, No JVD - GI/Abdominal GI/Abdominal Exam: POSITIVE: Normal Bowel Sounds, Non Tender, Non Distended, Soft - Extremities Extremities Exam: POSITIVE: No Clubbing Present, No Edema Present, No Cyanosis Present Additional Extremities Exam Details: No obvious injuries from cuff placement. - Neurological Neurological Exam: POSITIVE: Alert, Oriented x 3, No Facial Droop, Speech Intact / Clear, Moves All Extremities Equally - Psychiatric Psychiatric Exam: POSITIVE: Anxious Data Perinent Studies: Laboratory Results 04/28/16 04/29/16 Range/Units 20:43 06:04 WBC 12.69 H 10.78 (4.8-10.8) 10^3/uL RBC 5.12 5.09 (4.70-6.10) 10^6/uL Hgb 16.0 15.8 (14.0-18.0) g/dL Hct 42.9 43.0 (42.0-52.0) % MCV 83.8 84.5 (80-90) FL MCH 31.3 H 31.0 (27-31) PG MCHC 37.3 H 36.7 (33-37) g/dL RDW Std Deviation 43.5 43.8 (39-50) fL RDW Coeff of Matheus 14.4 14.5 (11.5-14.5) % Plt Count 274 245 (140-350) 10*3/uL MPV 10.3 10.7 (7.4-12.2) FL Immature Gran % (Auto) 0.2 0.2 (0-5) % Neut % (Auto) 67.2 66.0 (50-80) % Lymph % (Auto) 21.4 21.5 (10-50) % [place] % (Auto) 10.9 11.7 (5-15) % Eos % (Auto) 0.1 0.1 (0-8) % Baso % (Auto) 0.2 0.5 (0-1) % Immature Gran # (Auto) 0.02 0.02 10*3/UL Neut # (Auto) 8.53 7.12 10*3/UL Lymph # (Auto) 2.72 2.32 10*3/uL [place] # (Auto) 1.38 H 1.26 H (0.3-0.8) 10*3/UL Eos # (Auto) 0.01 0.01 10*3/UL Baso # (Auto) 0.03 0.05 10*3/UL WBC Morphology Comment Normal morphology Normal morphology (NORM) Plt Morphology Comment Normal morphology Normal morphology (NORM) RBC Morph Comment Normal morphology Normal morphology (NORM) PT 12.2 H (9.7-11.4) secs INR 1.18 (0.00-5.90) N/A D-Dimer 0.52 (0.00-0.59) mg/L Sodium 141 138 (135-145) meq/L Potassium 4.1 3.6 L (3.8-5.2) meq/L Chloride 104 106 (98-112) meq/L Carbon Dioxide 22 L 21 L (23-33) meq/L Anion Gap 15 11 (5-20) BUN 14 13 (7-22) mg/dL Creatinine 0.9 0.8 (0.70-1.50) mg/dL Estimated GFR > 60 > 60 (>60 ml/min/1.73m(2)) BUN/Creatinine Ratio 15.55 16.25 (6-20) Glucose 133 H 149 H (78-110) mg/dL Calculated Osmolality 294.0 H 288.0 (267-292) mOsm/kg Calcium 10.1 8.9 (8.7-10.7) mg/dL Magnesium 2.0 (1.6-2.4) mg/dL Total Bilirubin 2.6 H 2.4 H (0.3-1.2) mg/dL AST 525 H 486 H (21-57) IU/L ALT 652 H 677 H (21-72) IU/L Alkaline Phosphatase 138 H 121 (38-126) IU/L CK-MB (CK-2) 0.71 (0.00-5.00) NG/DL Troponin I < 0.012 < 0.012 (< 0.040) ng/mL Total Protein 8.7 H 7.7 (6.1-8.0) g/dL Albumin 4.8 4.1 (3.5-4.8) g/dL Globulin 3.9 3.6 (2.50-4.10) g/dL Albumin/Globulin Ratio 1.20 L 1.10 L (1.3-2.0) mg/g Amylase < 30 L (30-110) U/L Lipase 102 (23-300) IU/L Patient Problems - Patient Problem List (1) Narcotic withdrawal Current Visit: Yes Status: Acute (2) Polysubstance abuse Current Visit: Yes Status: Acute (3) Agitation Current Visit: Yes Status: Acute
[2016-04-29] MEDS ORDERED: LORazepam 1 MG TABLET PO ONE (18:27)
[2016-04-29] MEDS ORDERED: QUEtiapine Tab 25 MG TAB PO SCH (21:00)
[2016-04-29] MEDS ORDERED: CloNIDine Tab 0.1 MG TABLET PO SCH (21:00)
[2016-04-30 10:24] LABS: HEP B CORE IGM ANTIBODY Negative (Negative); HEPATITIS B SURFACE AG Negative (Negative)
[2016-04-30 13:51] LABS: HEPATITIS C ANTIBODY SCREEN Reactive (Negative)
--- NOTE | 2016-05-03 11:21 | PDOC(PROG) ---
General Note Progress Note: Patient is positive for hepatitis C, with active viral load, this is probably a chronic active infection. His LFTs were likely related to drug use in the setting of hepatitis C. This will be disclosed to the patient so that he is aware of his diagnosis. The [facility] health Department, Deanne Booth, at [phone], is where the diagnosis and it has been reported to their Public health Department. Patient Problems - Patient Problem List (1) Narcotic withdrawal Status: Acute (2) Polysubstance abuse Status: Acute (3) Agitation Status: Acute
== END 2016-04-29 18:40 ==
LOC: ER 20:34 → MED/SURG 21:50
PROVIDERS: ADMIT Internal Medicine; ATTEND Internal Medicine
DX: F19.239 Other psychoactive substance dependence with withdrawal, unspecified (principal); R45.1 Restlessness and agitation; R11.10 Vomiting, unspecified; R79.89 Other specified abnormal findings of blood chemistry; B19.20 Unspecified viral hepatitis C without hepatic coma
CPT/HCPCS: 36415; 71010; 74177; 80053; 82150; 82553; 83690; 83735; 84484; 85025; 85379; 85610; 86705; 86709; 86803; 87340; 87522; 93005; 93010; 94761; 96374; 96375; 96376; 99284; J0780; J2060; J2405; J7030

== ENCOUNTER 2016-04-29 20:06 | Emergency (ER) | payer SELFPAY ==
[2016-04-29 20:36] VITALS: RESP 18; TEMP 99.2
--- NOTE | 2016-04-29 21:20 | DI ---
XR CXR 2VW PA/LAT,04/29/2016 8:29 PM: Clinical History: Trauma Previous Exam: 05/26/2016 Findings: PA and lateral views of the chest are obtained, and demonstrate clear lungs. The cardiomediastinum an d bony thorax are unremarkable. Impression: Normal chest.
--- NOTE | 2016-04-29 21:20 | DI ---
XR WRIST 2 VW,04/29/2016 8:28 PM: Clinical History: Trauma Previous Exam: None at this facility. Findings: AP and lateral views of the right wrist are obtained, and demonstrate anatomic alignment without frac tures. The surrounding soft tissues are unremarkable. Impression: Normal right wrist.
--- NOTE | 2016-04-29 21:29 | DI ---
XR FOREARM 2VW,04/29/2016 8:27 PM: Clinical History: Trauma Previous Exam: None at this facility. Findings: AP and lateral views of the right forearm are obtained, and demonstrate anatomic alignment without fr actures. The surrounding soft tissues are unremarkable. Impression: Normal right forearm.
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
== END 2016-04-29 21:37 ==
LOC: ER 20:06
DX: S60.211A Contusion of right wrist, initial encounter (principal); S20.221A Contusion of right back wall of thorax, initial encounter; S00.431A Contusion of right ear, initial encounter; Y04.2XXA Assault by strike against or bumped into by another person, initial encounter; Y92.149 Unspecified place in prison as the place of occurrence of the external cause
CPT/HCPCS: 71020; 73090; 73100; 99283

== ENCOUNTER 2016-04-30 12:35 | Emergency (ER) | payer OTHER ==
[2016-04-30] MEDS ORDERED: Sodium Chloride 0.9% 1,000 ML PRIMARY IV ONE (12:45)
[2016-04-30] MEDS ORDERED: NORMAL SALINE 10 ML SYRINGE FLUSH IVP PRN (12:45)
[2016-04-30] MEDS ORDERED: HALOPERIDOL LACTATE 5 MG/1 ML AMPULE IVP ONE (12:46)
[2016-04-30 12:49] VITALS: RESP 16; TEMP 99.6
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
[2016-04-30 13:04] LABS: BASOPHILS # (AUTO) 0.05 10*3/UL; BASOPHILS % (AUTO) 0.5 % (0-1); EOSINOPHILS % (AUTO) 0.3 % (0-8); HEMATOCRIT 42.4 % (42.0-52.0); HEMOGLOBIN 15.3 g/dL (14.0-18.0); IMM GRAN % (AUTO) 0.4 % (0-5); IMM GRAN# (AUTO) 0.04 10*3/UL; LYMPHOCYTES # (AUTO) 3.17 10*3/uL; LYMPHOCYTES % (AUTO) 32.5 % (10-50); MEAN CORPUSCULAR HEMOGLOBIN 30.5 PG (27-31); MEAN CORPUSCULAR HGB CONC 36.1 g/dL (33-37); MEAN PLATELET VOLUME 10.9 FL (7.4-12.2); MONOCYTES # (AUTO) 1.44 10*3/UL (0.3-0.8); MONOCYTES % (AUTO) 14.8 % (5-15); NEUTROPHILS # (AUTO) 5.03 10*3/UL; NEUTROPHILS % (AUTO) 51.5 % (50-80); RDW COEFFICIENT OF VARIATION 14.5 % (11.5-14.5); RED BLOOD COUNT 5.02 10^6/uL (4.70-6.10); WHITE BLOOD COUNT 9.76 10^3/uL (4.8-10.8)
[2016-04-30 13:07] LABS: PLATELET MORPHOLOGY COMMENT NORMAL MORPHOLOGY (NORM)
[2016-04-30 13:10] LABS: ASPARTATE AMINO TRANSFERASE 416 IU/L (21-57); BILIRUBIN,TOTAL 2.3 mg/dL (0.3-1.2); BLOOD UREA NITROGEN 11 mg/dL (7-22); BUN/CREATININE RATIO 13.75 (6-20); CALCIUM 9.5 mg/dL (8.7-10.7); CHLORIDE 105 meq/L (98-112); CREATININE 0.8 mg/dL (0.70-1.50); EST GLOMERULAR FILTRATION > 60 (>60 ml/min/1.73m(2)); GLUCOSE 94 mg/dL (78-110); POTASSIUM 3.8 meq/L (3.8-5.2); SODIUM 138 meq/L (135-145); TOTAL PROTEIN 7.7 g/dL (6.1-8.0)
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
[2016-04-30 13:11] LABS: AMYLASE < 30 U/L (30-110)
== END 2016-04-30 13:45 | disposition home or self-care (01) ==
LOC: ER 12:35
DX: F11.23 Opioid dependence with withdrawal (principal); R11.2 Nausea with vomiting, unspecified; R79.89 Other specified abnormal findings of blood chemistry; S00.11XD Contusion of right eyelid and periocular area, subsequent encounter; Y04.2XXD Assault by strike against or bumped into by another person, subsequent encounter
CPT/HCPCS: 70450; 80053; 82150; 83690; 83735; 85025; 96361; 96374; 99283; J1630

== ENCOUNTER → 2016-05-22 | Outpatient (CLI) | payer OTHER ==
--- NOTE | 2016-05-22 12:09 | DI ---
MRI CERVICAL SPINE SCAN, 05/22/2016 10:01 AM: Clinical History: Atrophy of muscle of the right shoulder. Previous Exam: None. Sequences: Sagittal T1and T2 weighted. Axial T2 PLUS and FE 3D DUAL. Coronal T1 scans through the upp er cervical spine. The vertebral bodies are of normal height and size. There is disc space narrowing at C5-6 and all cer vical disc spaces show desiccation change. The cervical cord and cerebellar tonsils are normal. The C 2-3 through C4-5 disc spaces are normal. C5-6 has a circumferentially bulging but not herniated disc without canal or neural foraminal stenosis. The disc spaces from C6-7 through T3-4 are normal. Readin. There is a bulging but not herniated disc without canal or neural foraminal stenosis at C5-6. 2. The disc spaces from C2-3 through C4-5, and from C6-7 through T3-4 are normal. 3. The cervical cord is normal. Comment: The history indicates atrophy of muscle of the right shoulder. If it is an isolated muscle i nvolved, then either a MRI scan of the shoulder or of the brachial plexus may be indicated. If multip le muscles with different innervations are involved, then scans of the brachial plexus without and wi th IV contrast may be helpful to differentiate between a specific nerve lesion or Parsonage-Betts sy ndrome.
== END ==
LOC: MRI 09:56
PROVIDERS: ATTEND Family Medicine
DX: M62.511 Muscle wasting and atrophy, not elsewhere classified, right shoulder (principal); M47.812 Spondylosis without myelopathy or radiculopathy, cervical region
CPT/HCPCS: 72141

== ENCOUNTER → 2016-06-07 | Outpatient (CLI) | payer OTHER ==
--- NOTE | 2016-06-07 11:55 | DI ---
MRI UP EXTREMITY JNT W/O CN,06/07/2016 7:59 AM: Clinical History: Atrophy of muscles of the right shoulder. Previous Exam: MRI cervical spine performed May 22, 2016 Findings: Multiplanar MR images are obtained through the right shoulder without contrast. Bony alignment is anatomic. No fractures are seen. There are some cystic changes of the greater tuber nichole near the attachment of the anterior supraspinatus tendon. There are mild degenerative changes of the acromioclavicular joint. A trace amount of fluid is seen i n the subacromial bursa. There is diffuse fatty infiltration of the supraspinatus and infraspinatus tendons. The teres minor and subscapularis muscles are normal. There are some cystic changes at the attachment of the supraspinatus tendon anteriorly most likely re presenting some interstitial footplate tearing. There is some interstitial tearing at the myotendinous junction of the infraspinatus tendon. There is also some cystic changes at the insertion of the transverse ligament on the outer ridge of t he bicipital groove. The coracoid is unremarkable. The glenoid labrum is normal as far as evaluated. There is no evidence of tear nor ganglion cyst. The suprascapular notch appears normal with good fatty signal surrounding the suprascapular nerve. Th ere are some prominent vessels extending through the suprascapular notch. The long head of the biceps tendon is well seated within the bicipital groove with normal signal and normal course through the rotator cuff interval. Impression: 1. Fatty atrophy of the supraspinatus and infraspinatus muscles without any other muscular involvemen t. This is consistent with suprascapular nerve pathology. This is usually due to impingement within t he suprascapular notch however, there is no mass within the notch to suggest impingement. There are s ome prominent vessels, and impingement due to varicosities has been described in the literature. This could also be due to an injury to the suprascapular nerve from a separate sources such as a traction injury or mechanical trauma. This could also represent a case of Parsonage-Betts syndrome. 2. Interstitial tears involving the distal supraspinatus and infraspinatus muscles. 3. Minimal degenerative changes of the acromioclavicular joint. 3. Cystic changes near the attachment of the transverse ligament on the outer ridge of the bicipital groove.
== END ==
LOC: MRI 07:56
PROVIDERS: ATTEND Family Medicine
DX: M62.511 Muscle wasting and atrophy, not elsewhere classified, right shoulder (principal); S46.011A Strain of muscle(s) and tendon(s) of the rotator cuff of right shoulder, initial encounter; M19.011 Primary osteoarthritis, right shoulder
CPT/HCPCS: 73221